=== PATIENT | male | born 1955 | race Two or more races ===

== ENCOUNTER 2023-04-05 08:24 | Outpatient (CLI) | payer OTHER | END 2023-04-05 08:39 | disposition home or self-care (01) | LOC: SONOGRAMA 08:24 | DX: R10.13 Epigastric pain (principal) ==

== ENCOUNTER 2023-06-04 11:47 | Outpatient (CLI) | payer OTHER | END 2023-06-04 11:48 | disposition home or self-care (01) | LOC: LAB 11:47 | PROVIDERS: ATTEND Urology | DX: R97.20 Elevated prostate specific antigen [PSA] (principal) ==

== ENCOUNTER → 2023-06-29 | Outpatient (CLI) | payer OTHER | END | disposition home or self-care (01) | LOC: SONOGRAMA 07:08 | PROVIDERS: ATTEND Urology | DX: C61 Malignant neoplasm of prostate (principal); D29.1 Benign neoplasm of prostate ==

== ENCOUNTER 2024-05-16 07:06 | Outpatient (CLI) | payer OTHER | END 2024-05-16 07:15 | disposition home or self-care (01) | LOC: NUCLEAR 07:06 | PROVIDERS: ATTEND Internal Medicine | DX: I20.89 Other forms of angina pectoris (principal) | CPT/HCPCS: 78452; 93017; A9500 ==

== ENCOUNTER 2025-03-29 08:05 | Emergency (ER) | payer OTHER ==
[~2025-03-29] VITALS: Ht 175.3 cm; Wt 108.9 kg
[2025-03-29] MEDS ORDERED: CRESTOR40 MG PO (08:21)
[2025-03-29] MEDS ORDERED: CARVEDILOL ER40 MG PO (08:21)
[2025-03-29] MEDS ORDERED: ZESTRIL10 M1 PO (08:21)
[2025-03-29] MEDS ORDERED: METFORMIN HCL500 M3 PO (08:22)
[2025-03-29] MEDS ORDERED: IPRATROPIUM BROMIDE 0.5 MG/2.5 ML AMPUL.NEB IH SCH (08:45)
[2025-03-29] MEDS ORDERED: ACETAMINOPHEN 500 MG GEL..CAP PO ONE (08:45)
[2025-03-29] MEDS ORDERED: ALBUTEROL SULFATE 3 ML/2.5 MG AMPUL.NEB IH SCH (08:45)
[2025-03-29] MEDS ORDERED: GUAIFENESIN 200 MG/10 ML BLIST.PACK PO ONE (08:45)
[2025-03-29 09:22] LABS: BASO % 0.4 % (0.1-1.2); EOS # 0.22 (0.04-0.54); EOS % 4.0 % (0.7-7.0); LYMPH # 1.35 (1.18-3.74); LYMPH % 24.4 % (19.3-53.1); MEAN PLATELET VOLUME 9.80 fl (9.4-12.4); MONO # 0.88 (0.24-0.82); NEUT # 3.06 (1.56-6.13); NEUT % 55.1 % (34.0-71.1); RED CELL DISTRIBUTION WIDTH 13.4 % (11.6-14.4)
[2025-03-29 09:25] LABS: MONO % 15.9 % (4.7-12.5)
[2025-03-29 10:04] LABS: COVID-19 AG NEGATIVE (NEGATIVE)
== END 2025-03-29 15:32 | disposition home or self-care (01) ==
LOC: ER 08:30
PROVIDERS: General Practice
DX: B34.9 Viral infection, unspecified (principal); R05.9 Cough, unspecified; Z20.822 Contact with and (suspected) exposure to COVID-19; I10 Essential (primary) hypertension; E11.9 Type 2 diabetes mellitus without complications; Z79.84 Long term (current) use of oral hypoglycemic drugs

== ENCOUNTER 2025-05-01 07:43 | Outpatient (CLI) | payer OTHER ==
[~2025-05-01 07:43] MED LIST: CARVEDILOL ER40 MG PO; CRESTOR40 MG PO; METFORMIN HCL500 M3 PO; ZESTRIL10 M1 PO
== END 2025-05-01 07:49 | disposition home or self-care (01) ==
LOC: RAD 07:43
PROVIDERS: ATTEND Internal Medicine Pulmonary Disease
DX: E11.9 Type 2 diabetes mellitus without complications (principal); I10 Essential (primary) hypertension; C61 Malignant neoplasm of prostate; R06.00 Dyspnea, unspecified